=== PATIENT | male | born 2000 | race Caucasian/White ===

== ENCOUNTER 2020-09-04 13:03 | Inpatient (IN) | payer OTHER ==
[~2020-09-04] VITALS: Ht 172.7 cm; Wt 70.3 kg
[2020-09-04] MEDS ORDERED: ADMELOG100 UNIT/1 SQ (16:16)
[2020-09-04] MEDS ORDERED: BASAGLAR K100 UNIT/1 SQ (16:17)
[2020-09-04 16:53] LABS: BUN/CREATININE RATIO 25 (0-10)
[2020-09-04 20:12] LABS: BUN/CREATININE RATIO 23 (0-10)
[2020-09-05 00:47] LABS: BUN/CREATININE RATIO 22 (0-10)
[2020-09-05 04:59] LABS: RED BLOOD COUNT 4.46 M/UL (4.20-5.50); WHITE BLOOD COUNT 13.1 K/UL (4.5-11.0)
[2020-09-05 05:18] LABS: BUN/CREATININE RATIO 22 (0-10)
[2020-09-05 15:01] LABS: BUN/CREATININE RATIO 13 (0-10)
[2020-09-06 06:00] LABS: BUN/CREATININE RATIO 13 (0-10)
[2020-09-06] MEDS ORDERED: ADMELOG100 UNIT/1 SQ (11:12)
[2020-09-06] MEDS ORDERED: BASAGLAR K100 UNIT/1 SQ (11:12)
== END 2020-09-06 14:29 | disposition home or self-care (01) | DRG 638 ==
LOC: CCU 15:51
PROVIDERS: Physician Assistant Medical; ADMIT Internal Medicine
DX: E11.10 Type 2 diabetes mellitus with ketoacidosis without coma (principal); E87.1 Hypo-osmolality and hyponatremia; R65.10 Systemic inflammatory response syndrome (SIRS) of non-infectious origin without acute organ dysfunction; Z79.4 Long term (current) use of insulin; K90.0 Celiac disease; D72.829 Elevated white blood cell count, unspecified; F17.210 Nicotine dependence, cigarettes, uncomplicated; Z20.822 Contact with and (suspected) exposure to COVID-19; Z83.3 Family history of diabetes mellitus; Z82.49 Family history of ischemic heart disease and other diseases of the circulatory system
CPT/HCPCS: 36415; 80048; 80076; 82040; 82962; 83036; 83605; 85025; J1650; J7030; J7040; J7050